=== PATIENT | female | born 1940 | race Caucasian/White ===

== ENCOUNTER 2025-05-31 15:55 | Inpatient (IN) | payer MEDICARE ==
[~2025-05-31] VITALS: Ht 167.6 cm; Wt 60.8 kg
[2025-05-31] MEDS: IV NS 0.9% 500 ML BAG IV ONE ×2 (16:10→17:11)
[2025-05-31 16:30] LABS: PLATELET COUNT (AUTO) 209 K/uL (150-450); RED BLOOD CELL COUNT(AUTO) 4.20 MIL/uL (4.0-5.2); RED CELL DISTRIBUTION WIDTH 12.7 % (11.5-15.0); WHITE BLOOD COUNT (AUTO) 7.4 K/uL (4.3-11.0)
[2025-05-31 16:34] LABS: CALCIUM, SERUM 8.5 mg/dL (8.5-10.1); CREATININE 2.7 mg/dL (0.6-1.3); SODIUM SERUM 137 mmol/L (136-145); UREA NITROGEN, BLOOD 65 mg/dL (7-18)
[2025-05-31] MEDS ORDERED: LEVO100T9 PO (16:34)
[2025-05-31] MEDS ORDERED: CARV25TA2 PO (16:34)
[2025-05-31] MEDS ORDERED: DAPA10TA PO (16:34)
[2025-05-31] MEDS ORDERED: SPIR25TA PO (16:34)
[2025-05-31] MEDS ORDERED: FURO20TA4 PO (16:34)
[2025-05-31] MEDS ORDERED: SACU1TAB PO (16:34)
[2025-05-31] MEDS ORDERED: APIX5TAB PO (16:34)
[2025-05-31] MEDS ORDERED: MAGNESIUM HYDROXIDE 30 ML UDC PO PRN (17:00)
[2025-05-31] MEDS ORDERED: Z GUARD REMEDY 4 OZ OINT TP PRN (17:00)
[2025-05-31] MEDS ORDERED: MAG HYDROX/AL HYDROX/SIMETH 30 ML UDC PO PRN (17:00)
[2025-05-31] MEDS ORDERED: ONDANSETRON HCL/PF 4 MG/2 ML VIAL IVP PRN (17:00)
[2025-05-31] MEDS: IV NS 0.9% 1,000 ML IV PRN (21:22)
[2025-05-31] MEDS: HEPARIN SODIUM, PORCINE 5000 UNITS/1 ML VIAL SQ SCH (21:51)
[2025-06-01] VITALS (8 sets, daily range): BP systolic 100–117; BP diastolic 43–76; TEMP 97.7–98.4; O2SAT 95–97
[2025-06-01] MEDS: ZOLPIDEM TARTRATE 5 MG TABLET PO PRN (00:59)
[2025-06-01] MEDS: ACETAMINOPHEN 325 MG TABLET PO PRN (04:12)
[2025-06-01 08:23] LABS: PLATELET COUNT (AUTO) 192 K/uL (150-450); RED BLOOD CELL COUNT(AUTO) 4.59 MIL/uL (4.0-5.2); RED CELL DISTRIBUTION WIDTH 13.3 % (11.5-15.0); WHITE BLOOD COUNT (AUTO) 7.0 K/uL (4.3-11.0)
[2025-06-01 08:39] LABS: CALCIUM, SERUM 8.3 mg/dL (8.5-10.1); CREATININE 2.2 mg/dL (0.6-1.3); PHOSPHORUS 3.6 mg/dL (2.5-4.9); SODIUM SERUM 139.0 mmol/L (136-145); UREA NITROGEN, BLOOD 59.0 mg/dL (7-18)
[2025-06-01] MEDS ORDERED: APIXABAN 5 MG TABLET PO SCH (09:30)
[2025-06-01] MEDS: PANTOPRAZOLE 40 MG TABLET.DR PO SCH (09:54)
[2025-06-01] MEDS: ASPIRIN 81 MG TAB.CHEW PO SCH (10:39)
[2025-06-01 12:38] LABS: LDL 81 mg/dL (0-99)
[2025-06-01] MEDS: ATORVASTATIN 40 MG TABLET PO SCH (21:11)
[2025-06-02] VITALS (8 sets, daily range): BP systolic 105–130; BP diastolic 45–78; TEMP 97.5–98.2; O2SAT 95–98
[2025-06-02 07:56] LABS: PLATELET COUNT (AUTO) 207 K/uL (150-450); RED BLOOD CELL COUNT(AUTO) 4.59 MIL/uL (4.0-5.2); RED CELL DISTRIBUTION WIDTH 13.1 % (11.5-15.0); WHITE BLOOD COUNT (AUTO) 7.1 K/uL (4.3-11.0)
[2025-06-02 07:58] LABS: ASPARTATE AMINOTRANSFERASE 38 U/L (15-37); CALCIUM, SERUM 8.5 mg/dL (8.5-10.1); CREATININE 1.5 mg/dL (0.6-1.3); PHOSPHORUS 2.1 mg/dL (2.5-4.9); SODIUM SERUM 143 mmol/L (136-145); TOTAL PROTEIN, SERUM 6.7 g/dL (6.4-8.2); UREA NITROGEN, BLOOD 35 mg/dL (7-18)
[2025-06-02 08:00] LABS: CREATINE KINASE, TOTAL 98 U/L (26-192)
[2025-06-02] MEDS ORDERED: CLOPIDOGREL BISULFATE 75 MG TABLET PO SCH (11:30)
[2025-06-02] MEDS: APIXABAN 2.5 MG TABLET PO SCH (17:15)
[2025-06-02] MEDS: K PHOS NEUTRAL 250 MG TABLET PO ONE (17:15)
[2025-06-03 04:00] VITALS: BP 133/44; TEMP 97.9; O2SAT 96
[2025-06-03 07:36] LABS: PLATELET COUNT (AUTO) 175 K/uL (150-450); RED BLOOD CELL COUNT(AUTO) 3.99 MIL/uL (4.0-5.2); RED CELL DISTRIBUTION WIDTH 13.4 % (11.5-15.0); WHITE BLOOD COUNT (AUTO) 6.8 K/uL (4.3-11.0)
[2025-06-03 08:00] VITALS: BP 125/62; TEMP 98.2; O2SAT 96
[2025-06-03 08:13] LABS: CALCIUM, SERUM 8.6 mg/dL (8.5-10.1); CREATININE 1.3 mg/dL (0.6-1.3); PHOSPHORUS 2.5 mg/dL (2.5-4.9); SODIUM SERUM 145.0 mmol/L (136-145); UREA NITROGEN, BLOOD 16.0 mg/dL (7-18)
[2025-06-03] MEDS ORDERED: ASPI-1169 PO (09:11)
[2025-06-03] MEDS ORDERED: ATOR40TA PO (09:11)
[2025-06-03 11:07] LABS: PTH, INTACT 38 pg/mL (15-65)
[2025-06-05 10:07] LABS: *SPE A/G RATIO 1.1 (0.7-1.7); *SPE ALBUMIN 3.3 g/dL (2.9-4.4); *SPE ALPHA-1-GLOBULIN 0.2 g/dL (0.0-0.4); *SPE ALPHA-2-GLOBULIN 0.8 g/dL (0.4-1.0); *SPE BETA GLOBULIN 1.0 g/dL (0.7-1.3); *SPE GLOBULIN, TOTAL 3.1 g/dL (2.2-3.9); *SPE M-SPIKE Not Observed g/dL (Not Observed); *SPE PROTEIN TOTAL 6.4 g/dL (6.0-8.5); *SPEGAMMA GLOBULIN 1.0 g/dL (0.4-1.8)
== END 2025-06-03 14:35 | disposition home health service (06) | DRG 64 ==
LOC: ER 15:59 → TELE1 19:53 → MEDSG1 06-02 19:30
PROVIDERS: ADMIT Student in an Organized Health Care Education/Training Program; ATTEND Student in an Organized Health Care Education/Training Program
DX: I63.233 Cerebral infarction due to unspecified occlusion or stenosis of bilateral carotid arteries (principal); N17.0 Acute kidney failure with tubular necrosis; I13.0 Hypertensive heart and chronic kidney disease with heart failure and stage 1 through stage 4 chronic kidney disease, or unspecified chronic kidney disease; E86.0 Dehydration; I50.9 Heart failure, unspecified; E03.9 Hypothyroidism, unspecified; M89.8X9 Other specified disorders of bone, unspecified site; Z86.73 Personal history of transient ischemic attack (TIA), and cerebral infarction without residual deficits; Z87.891 Personal history of nicotine dependence; I95.9 Hypotension, unspecified; R73.03 Prediabetes; N18.9 Chronic kidney disease, unspecified; E83.9 Disorder of mineral metabolism, unspecified
CPT/HCPCS: 36415; 70450-TC; 70551-TC; 71045-TC; 76770-TC; 80048-TC; 80053-TC; 80061-TC; 82550-TC; 83735-TC; 83880; 83970; 84100-TC; 84155; 84165; 84439-TC; 84443-TC; 84484-TC; 85025-TC; 93307-TC; 93880-TC; 97116-TC; 97530-TC; A4223; G0378; J1644; J7030; J7040; J7050